=== PATIENT | male | born 1970 | race Caucasian/White ===

== ENCOUNTER 2017-01-18 06:45 | Emergency (ER) | payer OTHER ==
[~2017-01-18] VITALS: Ht 182.8 cm; Wt 95.3 kg
[~2017-01-18 06:45] MED LIST: KEFLEX500 MG PO; NORFLEX100 MG PO; VICODIN ES 7501 TAB PO
[2017-01-18 06:53] VITALS: BP 131/79
[2017-01-18] MEDS ORDERED: IBU800 MG PO (08:13)
== END 2017-01-18 08:21 | disposition home or self-care (01) ==
LOC: ED 06:45
DX: S40.021A Contusion of right upper arm, initial encounter (principal); W23.0XXA Caught, crushed, jammed, or pinched between moving objects, initial encounter; Y93.89 Activity, other specified; Y92.89 Other specified places as the place of occurrence of the external cause; Y99.8 Other external cause status